=== PATIENT | male | born 1955 | race African-American/Black ===

== ENCOUNTER 2017-02-12 12:18 | Emergency (ER) | payer MEDICAID, OTHER ==
[~2017-02-12] VITALS: Ht 177.8 cm; Wt 79.0 kg
[~2017-02-12 12:18] MED LIST: ABIL5; TRIH2TAB4
[2017-02-12 13:59] LABS: *AMPHETAMINES SCREEN URINE NEGATIVE (NEGATIVE); *BARBITURATES SCREEN URINE NEGATIVE (NEGATIVE); *BENZODIAZEPINES SCREEN URINE NEGATIVE (NEGATIVE); *COCAINE SCREEN URINE PRESUMTIVE POSITIVE (NEGATIVE); CANNABINOID URINE SCREEN PRESUMTIVE POSITIVE (NEGATIVE); METHADONE URINE SCREEN NEGATIVE (NEGATIVE); OPIATES URINE SCREEN NEGATIVE (NEGATIVE); PHENCYCLIDINE URINE SCREEN PRESUMTIVE POSITIVE (NEGATIVE)
[2017-02-12] MEDS ORDERED: LIDOCAINE HCL 1% 20ML VIAL (Pyxis) INJ INFIL ONE (14:15)
[2017-02-12 15:15] VITALS: BP 121/79
[2017-05-21] MEDS ORDERED: ASPI-1160 PO (12:18)
[2017-05-21] MEDS ORDERED: FURO-151 PO (12:19)
[2017-05-21] MEDS ORDERED: BENA40TA66 PO (18:17)
[2017-07-01] MEDS ORDERED: ALPR0.25 PO (12:04)
== END 2017-02-12 15:49 | disposition home or self-care (01) ==
LOC: ER 12:36
DX: S01.511A Laceration without foreign body of lip, initial encounter (principal); J45.909 Unspecified asthma, uncomplicated; I50.9 Heart failure, unspecified; I11.0 Hypertensive heart disease with heart failure; F41.9 Anxiety disorder, unspecified; E11.9 Type 2 diabetes mellitus without complications; F12.10 Cannabis abuse, uncomplicated; F16.10 Hallucinogen abuse, uncomplicated; W22.8XXA Striking against or struck by other objects, initial encounter; Y93.55 Activity, bike riding; Y99.8 Other external cause status; Y92.89 Other specified places as the place of occurrence of the external cause
CPT/HCPCS: 12011; 36415; 70450; 70486; 80305; 99285; G0482; J3490; X7700; Z7610

== ENCOUNTER 2017-05-19 15:33 | Inpatient (IN) | payer MEDICAID ==
[~2017-05-19] VITALS: Ht 188 cm; Wt 74.8 kg
[2017-05-19] MEDS ORDERED: ALBUTEROL (0.083%) 2.5MG/3ML NEB HHN STA (16:32)
[2017-05-19] MEDS ORDERED: IPRATROPIUM BROMIDE (0.02%) 0.5MG/2.5ML NEB HHN STA (16:32)
[2017-05-19 16:59] LABS: BASOPHILS % 0.5 % (0.0-2.0); EOSINOPHILS % 1.9 % (0.0-5.0); HEMATOCRIT. 36.4 % (42.0-52.0); LYMPHOCYTES % 9.9 % (20.0-50.0); MEAN CORPUSCULAR HEMOGLOBIN 27.8 pg (28.0-32.0); MEAN CORPUSCULAR VOLUME 84.2 fL (80.0-94.0); MEAN PLATELET VOLUME 8.3 fl (7.4-10.4); MONOCYTES % 8.1 % (2.0-8.0); NEUTROPHILS % 79.6 % (40.0-76.0); PLATELET 296 x1000/uL (130-400); RED BLOOD CELL COUNT 4.33 mill/uL (4.7-6.1); RED CELL DISTRIBUTION WIDTH 15.2 % (11.6-14.6)
[2017-05-19 17:08] LABS: CARBON DIOXIDE 31 mEq/L (21-32); CHLORIDE 100 mEq/L (98-107)
[2017-05-19 17:15] LABS: TROPONIN I 0.22 ng/mL (0.00-0.04)
[2017-05-19] MEDS ORDERED: FUROSEMIDE 40MG/4ML VIAL IVP NR (19:30)
[2017-05-19] MEDS ORDERED: NITROGLYCERIN OINT 1GM/INCH UDPKT TD NR (19:30)
[2017-05-19 20:00] VITALS: BP 132/78
[2017-05-19] MEDS ORDERED: ASPIRIN 325MG EC TABLET PO ONE (20:15)
[2017-05-19 22:00] VITALS: BP 132/78
[2017-05-19] MEDS ORDERED: GUAIFENESIN 200MG/10ML SUGAR FREE UDC PO PRN (22:45)
[2017-05-19] MEDS ORDERED: ACETAMINOPHEN 650MG/20.3ML UDC GT PRN (22:45)
[2017-05-19] MEDS ORDERED: DIPHENHYDRAMINE 50MG/ML VIAL IV PRN (22:45)
[2017-05-19] MEDS ORDERED: ACETAMINOPHEN 650MG SUPP PR PRN (22:45)
[2017-05-19] MEDS ORDERED: CLONIDINE 0.1MG TABLET PO PRN (22:45)
[2017-05-19] MEDS ORDERED: HYDROCODONE/ACETAMINOPHEN 5/325MG TABLET PO PRN (22:45)
[2017-05-19] MEDS ORDERED: DOCUSATE SODIUM 100MG CAPSULE PO PRN (22:45)
[2017-05-19] MEDS ORDERED: ONDANSETRON HCL 4MG/2ML VIAL IV PRN (22:45)
[2017-05-19] MEDS ORDERED: MAGNESIUM/ALUMINUM HYDROXIDE/SIMETHICONE 30ML UDC PO PRN (22:45)
[2017-05-19] MEDS ORDERED: ACETAMINOPHEN 325MG TABLET PO PRN (22:45)
[2017-05-19] MEDS ORDERED: NA PHOS,M-B/NA PHOS,DI-BA ENEMA 118ML PR PRN (22:45)
[2017-05-19] MEDS ORDERED: IPRATROPIUM/ALBUTEROL 0.5-3(2.5)MG/3ML NEB INH PRN (22:45)
[2017-05-20] VITALS (7 sets, daily range): BP systolic 99–137; BP diastolic 68–89
[2017-05-20] MEDS ORDERED: lasix (00:15)
[2017-05-20] MEDS ORDERED: norco (00:17)
[2017-05-20] MEDS ORDERED: hctz (00:19)
[2017-05-20] MEDS ORDERED: albute (00:20)
[2017-05-20] MEDS: IPRATROPIUM/ALBUTEROL 0.5-3(2.5)MG/3ML NEB INH SCH ×4 (01:06→21:29)
[2017-05-20 03:45] LABS: CLARITY URINE CLEAR (CLEAR); COLOR URINE YELLOW (YELLOW); GLUCOSE URINE NEGATIVE (NEGATIVE); KETONES URINE NEGATIVE (NEGATIVE); LEUKOCYTE ESTERASE URINE NEGATIVE (NEGATIVE); NITRITE URINE NEGATIVE (NEGATIVE); OCCULT BLOOD URINE 1+ (NEGATIVE); PH URINE 5.5 (4.5-8.0); PROTEIN URINE NEGATIVE (NEGATIVE); SPECIFIC GRAVITY URINE 1.013 (1.005-1.030); UROBILINOGEN URINE 0.2 E.U./dL (0.2-1.0)
[2017-05-20 04:04] LABS: *AMPHETAMINES SCREEN URINE NEGATIVE (NEGATIVE); *BARBITURATES SCREEN URINE NEGATIVE (NEGATIVE); *BENZODIAZEPINES SCREEN URINE NEGATIVE (NEGATIVE); *COCAINE SCREEN URINE PRESUMTIVE POSITIVE (NEGATIVE); CANNABINOID URINE SCREEN PRESUMTIVE POSITIVE (NEGATIVE); METHADONE URINE SCREEN NEGATIVE (NEGATIVE); OPIATES URINE SCREEN NEGATIVE (NEGATIVE); PHENCYCLIDINE URINE SCREEN PRESUMTIVE POSITIVE (NEGATIVE)
[2017-05-20] MEDS: SODIUM CHLORIDE 0.9% INJ 3ML FLUSH IVF SCH ×3 (05:53→19:47)
[2017-05-20 06:25] LABS: BASOPHILS % 0.5 % (0.0-2.0); EOSINOPHILS % 2.2 % (0.0-5.0); HEMATOCRIT. 35.1 % (42.0-52.0); HEMOGLOBIN. 11.7 g/dL (14.0-18.0); LYMPHOCYTES % 17.7 % (20.0-50.0); MEAN CORPUSCULAR HEMOGLOBIN 28.2 pg (28.0-32.0); MEAN CORPUSCULAR VOLUME 84.3 fL (80.0-94.0); MEAN PLATELET VOLUME 8.6 fl (7.4-10.4); MONOCYTES % 10.3 % (2.0-8.0); NEUTROPHILS % 69.3 % (40.0-76.0); PLATELET 267 x1000/uL (130-400); RED BLOOD CELL COUNT 4.16 mill/uL (4.7-6.1); RED CELL DISTRIBUTION WIDTH 15.1 % (11.6-14.6)
[2017-05-20 07:44] LABS: CARBON DIOXIDE 29 mEq/L (21-32); CHLORIDE 98 mEq/L (98-107)
[2017-05-20 07:49] LABS: CREATINE KINASE 150 IU/L (39-308); HDL CHOLESTEROL 90 mg/dL (40-59); LDL CHOLESTEROL 88 mg/dL (5-100); TROPONIN I 0.22 ng/mL (0.00-0.04)
[2017-05-20 08:50] LABS: T4 FREE 0.91 ng/dL (0.76-1.46)
[2017-05-20] MEDS: FUROSEMIDE 40MG/4ML VIAL IV SCH (09:11)
[2017-05-20] MEDS: ASPIRIN 81MG TABLET PO SCH (09:11)
[2017-05-20] MEDS ORDERED: PNEUMOCOCCAL 23-VAL P-SAC VAC 0.5 ML IM ONE (12:00)
[2017-05-20] MEDS ORDERED: INFLUENZA VIRUS VACCINE 0.5ML SYR IM ONE (12:00)
[2017-05-20 16:13] LABS: CREATINE KINASE MB FRACTION 1.7 ng/mL (0.5-3.6); TROPONIN I 0.19 ng/mL (0.00-0.04)
[2017-05-21] VITALS: BP 126/80
[2017-05-21] MEDS: IPRATROPIUM/ALBUTEROL 0.5-3(2.5)MG/3ML NEB INH SCH ×2 (02:37→07:57)
[2017-05-21 04:30] VITALS: BP 140/96
[2017-05-21] MEDS: SODIUM CHLORIDE 0.9% INJ 3ML FLUSH IVF SCH (05:04)
[2017-05-21 08:00] VITALS: BP 144/88
[2017-05-21] MEDS: ASPIRIN 81MG TABLET PO SCH (08:24)
[2017-05-21] MEDS: FUROSEMIDE 40MG/4ML VIAL IV SCH (08:24)
[2017-05-21 12:00] VITALS: BP 136/84
[2017-05-21] MEDS ORDERED: ASPI-1160 PO (12:18)
[2017-05-21] MEDS ORDERED: FURO-151 PO (12:19)
[2017-05-21 13:17] VITALS: BP 136/79
[2017-05-21] MEDS ORDERED: BENA40TA66 PO (18:17)
== END 2017-05-21 14:17 | disposition home or self-care (01) | DRG 194 ==
LOC: ER 15:33 → 7WST 20:11 → ENRESERV 21:12
PROVIDERS: ADMIT Family Medicine; ATTEND Family Medicine
PROC: 5A09357 Assistance with Respiratory Ventilation, Less than 24 Consecutive Hours, Continuous Positive Airway Pressure (ICD-10-PCS; principal; 2017-05-19)
DX: I11.0 Hypertensive heart disease with heart failure (principal); J44.1 Chronic obstructive pulmonary disease with (acute) exacerbation; D63.8 Anemia in other chronic diseases classified elsewhere; E11.9 Type 2 diabetes mellitus without complications; E78.5 Hyperlipidemia, unspecified; F41.9 Anxiety disorder, unspecified; I50.31 Acute diastolic (congestive) heart failure; F10.20 Alcohol dependence, uncomplicated; F14.90 Cocaine use, unspecified, uncomplicated; F12.90 Cannabis use, unspecified, uncomplicated; F17.210 Nicotine dependence, cigarettes, uncomplicated; M54.30 Sciatica, unspecified side; Z79.899 Other long term (current) drug therapy
CPT/HCPCS: 36415; 71010; 80053; 80061; 80305; 81001; 82550; 82553; 83036; 83605; 83690; 83880; 84439; 84443; 84484; 85025; 85379; 87040; 93005; 93306; 93970; 94640; 94660; 96374; 99285; J1940; J7611; J7620

== ENCOUNTER 2017-07-27 13:13 | Emergency (ER) | payer MEDICAID, OTHER ==
[~2017-07-27] VITALS: Ht 177.8 cm; Wt 85.0 kg
[~2017-07-27 13:13] MED LIST changes: +ALPR0.25 PO; +ASPI-1160 PO; +BENA40TA66 PO; +FURO-151 PO; -TRIH2TAB4
[2017-07-27 13:18] VITALS: BP 122/66
== END 2017-07-27 16:48 | disposition home or self-care (01) ==
LOC: ER 13:38
DX: R07.89 Other chest pain (principal)
CPT/HCPCS: 99283

== ENCOUNTER 2017-10-18 20:05 | Emergency (ER) | payer OTHER ==
[~2017-10-18] VITALS: Ht 188 cm; Wt 104.0 kg
[2017-10-18 20:07] VITALS: BP 164/100
== END 2017-10-18 23:50 | disposition left against medical advice (07) ==
LOC: ER 20:11
DX: Z53.21 Procedure and treatment not carried out due to patient leaving prior to being seen by health care provider (principal)

== ENCOUNTER 2017-11-11 20:10 | Emergency (ER) | payer OTHER ==
[~2017-11-11] VITALS: Ht 188 cm; Wt 78.6 kg
[2017-11-11] MEDS ORDERED: SODIUM CHLORIDE 0.9% 1,000 ML IV ONE (20:16)
[2017-11-11 20:33] LABS: BASOPHILS % 1.2 % (0.0-2.0); EOSINOPHILS % 2.9 % (0.0-5.0); MEAN CORPUSCULAR HEMOGLOBIN 27.1 pg (28.0-32.0); MEAN CORPUSCULAR VOLUME 81.4 fL (80.0-94.0); MEAN PLATELET VOLUME 8.9 fl (7.4-10.4); NEUTROPHILS % 63.9 % (40.0-76.0); PLATELET 186 x1000/uL (130-400); RED BLOOD CELL COUNT 4.05 mill/uL (4.7-6.1); RED CELL DISTRIBUTION WIDTH 17.2 % (11.6-14.6)
[2017-11-11 20:38] LABS: CHLORIDE 104 mEq/L (98-107)
[2017-11-11 20:42] LABS: INR 1.1; PROTHROMBIN TIME 11.9 sec (9.4-11.6)
[2017-11-11 20:43] LABS: PARTIAL THROMBOPLASTIN TIME 28.2 sec (23.4-31.0)
[2017-11-11 20:44] LABS: ETHANOL BLOOD < 10 mg/dL
[2017-11-11] MEDS ORDERED: ALTEPLASE IV STA (21:19)
[2017-11-11] MEDS ORDERED: ALTEPLASE 100MG/VIAL IV STA ×2 (21:19→21:36)
[2017-11-11 23:08] VITALS: BP 115/74
== END 2017-11-11 23:27 | disposition short-term general hospital (02) ==
LOC: ER 20:13
DX: I63.9 Cerebral infarction, unspecified (principal); J44.9 Chronic obstructive pulmonary disease, unspecified; E11.9 Type 2 diabetes mellitus without complications; I10 Essential (primary) hypertension; F12.10 Cannabis abuse, uncomplicated; F14.10 Cocaine abuse, uncomplicated; Z79.82 Long term (current) use of aspirin
CPT/HCPCS: 36415; 37195; 70450; 71045; 80053; 82962; 84484; 85025; 85610; 85730; 93005; 96360; 96361; 99291; G0482; J2997; J7030; Z7610

== ENCOUNTER 2018-08-03 12:56 | Inpatient (IN) | payer OTHER ==
[~2018-08-03] VITALS: Ht 188 cm; Wt 79.4 kg
[2018-08-03] MEDS ORDERED: PREDNISONE 20MG TABLET PO ONE (13:30)
[2018-08-03] MEDS ORDERED: ALBUTEROL (0.083%) 2.5MG/3ML NEB HHN ONE (13:30)
[2018-08-03] MEDS ORDERED: IPRATROPIUM BROMIDE (0.02%) 0.5MG/2.5ML NEB HHN ONE (13:30)
[2018-08-03 14:51] LABS: BASOPHILS % 0.7 % (0.0-2.0); EOSINOPHILS % 1.9 % (0.0-5.0); HEMATOCRIT. 34.6 % (42.0-52.0); HEMOGLOBIN. 11.4 g/dL (14.0-18.0); LYMPHOCYTES % 17.2 % (20.0-50.0); MEAN CORPUSCULAR HEMOGLOBIN 27.7 pg (28.0-32.0); MEAN PLATELET VOLUME 9.3 fl (7.4-10.4); MONOCYTES % 10.8 % (2.0-8.0); NEUTROPHILS % 69.4 % (40.0-76.0); PLATELET 255 x1000/uL (130-400); RED BLOOD CELL COUNT 4.13 mill/uL (4.7-6.1); RED CELL DISTRIBUTION WIDTH 16.1 % (11.6-14.6)
[2018-08-03 14:56] LABS: CHLORIDE 105 mEq/L (98-107)
[2018-08-03] MEDS ORDERED: ASPIRIN 325MG EC TABLET PO ONE (15:15)
[2018-08-03] MEDS ORDERED: FUROSEMIDE 40MG/4ML VIAL IVP NR (15:15)
[2018-08-03 15:34] LABS: INR 1.1; PARTIAL THROMBOPLASTIN TIME 32.8 sec (23.4-31.0); PROTHROMBIN TIME 11.4 sec (9.1-11.1)
[2018-08-03] MEDS ORDERED: HEPARIN 5000 UNITS/ML VIAL IV ONE (15:45)
[2018-08-03] MEDS ORDERED: HEPARIN 25,000 UNITS PREMIX 500 ML IV ONE (15:45)
[2018-08-03 18:25] VITALS: BP 130/88
[2018-08-03 20:00] VITALS: BP 136/87
[2018-08-03 20:26] VITALS: BP 136/87
[2018-08-03] MEDS ORDERED: HYDROMORPHONE HCL/PF 2MG/ML CPJ IM PRN (21:00)
[2018-08-03] MEDS: FUROSEMIDE 40MG/4ML VIAL IV SCH (21:15)
[2018-08-03 22:00] VITALS: BP 135/88
[2018-08-03] MEDS: NITROGLYCERIN OINT 1GM/INCH UDPKT TD SCH (22:51)
[2018-08-03] MEDS: ALPRAZOLAM 0.25 MG TABLET PO PRN (22:51)
[2018-08-03] MEDS: ATORVASTATIN CALCIUM 40MG TABLET PO SCH (22:51)
[2018-08-03] MEDS: METOPROLOL TARTRATE 50MG TABLET PO SCH (22:52)
[2018-08-03] MEDS: LISINOPRIL 20MG TABLET PO SCH (22:52)
[2018-08-03 23:00] VITALS: BP 125/64
[2018-08-03] MEDS ORDERED: HEPARIN 5000 UNITS/ML VIAL IV PRN ×2 (23:00)
[2018-08-03] MEDS ORDERED: HEPARIN 25,000 UNITS PREMIX 500 ML IV PRN (23:00)
[2018-08-04] VITALS (17 sets, daily range): BP systolic 102–156; BP diastolic 46–96
[2018-08-04 00:12] LABS: INR 1.1; PARTIAL THROMBOPLASTIN TIME 40.6 sec (23.4-31.0); PROTHROMBIN TIME 11.4 sec (9.1-11.1)
[2018-08-04] MEDS: NITROGLYCERIN OINT 1GM/INCH UDPKT TD SCH ×3 (06:40→22:00)
[2018-08-04] MEDS ORDERED: IPRATROPIUM/ALBUTEROL 0.5-3(2.5)MG/3ML NEB HHN PRN (09:00)
[2018-08-04] MEDS: ARIPIPRAZOLE 5MG TABLET PO SCH (09:00)
[2018-08-04 09:41] LABS: CREATINE KINASE MB FRACTION 1.3 ng/mL (0.5-3.6)
[2018-08-04] MEDS ORDERED: DOBUTAMINE 250MG PREMIX 250 ML IV NR (10:00)
[2018-08-04] MEDS: ASPIRIN 325MG EC TABLET PO SCH (10:03)
[2018-08-04] MEDS: LISINOPRIL 20MG TABLET PO SCH (10:05)
[2018-08-04] MEDS: FUROSEMIDE 40MG/4ML VIAL IV SCH ×2 (10:05→21:00)
[2018-08-04] MEDS: METOPROLOL TARTRATE 50MG TABLET PO SCH ×2 (10:05→21:01)
[2018-08-04] MEDS: IPRATROPIUM/ALBUTEROL 0.5-3(2.5)MG/3ML NEB HHN SCH ×3 (11:52→20:17)
[2018-08-04] MEDS ORDERED: DOBUTAMINE 250MG PREMIX 0 ML IV ONE (12:18)
[2018-08-04] MEDS: BUDESONIDE 0.5MG/2ML NEB HHN SCH (20:17)
[2018-08-04] MEDS: ATORVASTATIN CALCIUM 40MG TABLET PO SCH (21:00)
[2018-08-04] MEDS: ALPRAZOLAM 0.25 MG TABLET PO PRN (21:01)
[2018-08-05] VITALS (13 sets, daily range): BP systolic 104–133; BP diastolic 62–91
[2018-08-05] MEDS: IPRATROPIUM/ALBUTEROL 0.5-3(2.5)MG/3ML NEB HHN SCH ×6 (00:03→21:39)
[2018-08-05] MEDS: NITROGLYCERIN OINT 1GM/INCH UDPKT TD SCH ×3 (06:00→21:24)
[2018-08-05 07:30] LABS: CREATINE KINASE MB FRACTION 1.4 ng/mL (0.5-3.6)
[2018-08-05 07:40] LABS: BASOPHILS % 0.6 % (0.0-2.0); EOSINOPHILS % 0.7 % (0.0-5.0); HEMATOCRIT. 34.7 % (42.0-52.0); HEMOGLOBIN. 11.4 g/dL (14.0-18.0); LYMPHOCYTES % 18.2 % (20.0-50.0); MEAN CORPUSCULAR HEMOGLOBIN 27.6 pg (28.0-32.0); MEAN CORPUSCULAR VOLUME 84.2 fL (80.0-94.0); MEAN PLATELET VOLUME 9.8 fl (7.4-10.4); MONOCYTES % 10.1 % (2.0-8.0); NEUTROPHILS % 70.4 % (40.0-76.0); PLATELET 238 x1000/uL (130-400); RED BLOOD CELL COUNT 4.12 mill/uL (4.7-6.1); RED CELL DISTRIBUTION WIDTH 15.7 % (11.6-14.6)
[2018-08-05] MEDS: BUDESONIDE 0.5MG/2ML NEB HHN SCH ×2 (07:50→21:39)
[2018-08-05] MEDS: ASPIRIN 325MG EC TABLET PO SCH (09:00)
[2018-08-05] MEDS: LISINOPRIL 20MG TABLET PO SCH (09:00)
[2018-08-05] MEDS: ARIPIPRAZOLE 5MG TABLET PO SCH (09:00)
[2018-08-05] MEDS: FUROSEMIDE 40MG/4ML VIAL IV SCH ×2 (09:00→20:16)
[2018-08-05] MEDS: METOPROLOL TARTRATE 50MG TABLET PO SCH ×2 (09:00→20:18)
[2018-08-05] MEDS ORDERED: ESMOLOL HCL 10MG/ML 10ML VIAL IV ONE (09:20)
[2018-08-05] MEDS ORDERED: DOBUTAMINE 250MG PREMIX 250 ML IV ONE (09:20)
[2018-08-05] MEDS ORDERED: ATROPINE SULFATE 0.1MG/ML 10ML DISP.SYRIN ONE (10:11)
[2018-08-05] MEDS: ATORVASTATIN CALCIUM 40MG TABLET PO SCH (20:16)
[2018-08-06] VITALS (13 sets, daily range): BP systolic 92–126; BP diastolic 35–79
[2018-08-06] MEDS: IPRATROPIUM/ALBUTEROL 0.5-3(2.5)MG/3ML NEB HHN SCH ×7 (01:25→22:21)
[2018-08-06 06:42] LABS: BASOPHILS % 0.6 % (0.0-2.0); EOSINOPHILS % 1.1 % (0.0-5.0); HEMATOCRIT. 33.6 % (42.0-52.0); HEMOGLOBIN. 11.2 g/dL (14.0-18.0); LYMPHOCYTES % 19.6 % (20.0-50.0); MEAN CORPUSCULAR VOLUME 83.9 fL (80.0-94.0); MEAN PLATELET VOLUME 9.8 fl (7.4-10.4); MONOCYTES % 10.2 % (2.0-8.0); NEUTROPHILS % 68.5 % (40.0-76.0); PLATELET 238 x1000/uL (130-400); RED CELL DISTRIBUTION WIDTH 15.8 % (11.6-14.6)
[2018-08-06] MEDS: NITROGLYCERIN OINT 1GM/INCH UDPKT TD SCH ×3 (07:06→22:09)
[2018-08-06 07:54] LABS: CHLORIDE 99 mEq/L (98-107)
[2018-08-06] MEDS: LISINOPRIL 20MG TABLET PO SCH (08:42)
[2018-08-06] MEDS: ASPIRIN 325MG EC TABLET PO SCH (08:42)
[2018-08-06] MEDS: ARIPIPRAZOLE 5MG TABLET PO SCH (08:43)
[2018-08-06] MEDS: METOPROLOL TARTRATE 50MG TABLET PO SCH ×2 (08:43→21:00)
[2018-08-06] MEDS: FUROSEMIDE 40MG/4ML VIAL IV SCH ×2 (08:43→20:57)
[2018-08-06] MEDS: BUDESONIDE 0.5MG/2ML NEB HHN SCH ×4 (08:57→22:20)
[2018-08-06] MEDS: ALPRAZOLAM 0.25 MG TABLET PO PRN (09:19)
[2018-08-06] MEDS: ATORVASTATIN CALCIUM 40MG TABLET PO SCH (21:05)
[2018-08-06 21:24] LABS: *AMPHETAMINES SCREEN URINE NEGATIVE (NEGATIVE); *BARBITURATES SCREEN URINE NEGATIVE (NEGATIVE); *BENZODIAZEPINES SCREEN URINE PRESUMTIVE POSITIVE (NEGATIVE)
[2018-08-06 21:25] LABS: *COCAINE SCREEN URINE PRESUMTIVE POSITIVE (NEGATIVE); CANNABINOID URINE SCREEN NEGATIVE (NEGATIVE); METHADONE URINE SCREEN NEGATIVE (NEGATIVE); OPIATES URINE SCREEN NEGATIVE (NEGATIVE); PHENCYCLIDINE URINE SCREEN NEGATIVE (NEGATIVE)
[2018-08-07] VITALS (7 sets, daily range): BP systolic 101–145; BP diastolic 65–90
[2018-08-07 06:11] LABS: BASOPHILS % 0.8 % (0.0-2.0); HEMATOCRIT. 32.7 % (42.0-52.0); HEMOGLOBIN. 10.8 g/dL (14.0-18.0); LYMPHOCYTES % 17.6 % (20.0-50.0); MEAN CORPUSCULAR HEMOGLOBIN 27.8 pg (28.0-32.0); MEAN PLATELET VOLUME 9.5 fl (7.4-10.4); MONOCYTES % 12.6 % (2.0-8.0); PLATELET 220 x1000/uL (130-400); RED BLOOD CELL COUNT 3.89 mill/uL (4.7-6.1); RED CELL DISTRIBUTION WIDTH 15.3 % (11.6-14.6)
[2018-08-07 06:13] LABS: CHLORIDE 103 mEq/L (98-107)
[2018-08-07] MEDS: NITROGLYCERIN OINT 1GM/INCH UDPKT TD SCH (06:16)
[2018-08-07] MEDS: FUROSEMIDE 40MG/4ML VIAL IV SCH (09:00)
[2018-08-07] MEDS: ARIPIPRAZOLE 5MG TABLET PO SCH (09:01)
[2018-08-07] MEDS: ASPIRIN 325MG EC TABLET PO SCH (09:02)
[2018-08-07] MEDS: METOPROLOL TARTRATE 50MG TABLET PO SCH (09:03)
[2018-08-07] MEDS: LISINOPRIL 20MG TABLET PO SCH (09:03)
[2018-08-07] MEDS: ALPRAZOLAM 0.25 MG TABLET PO PRN (12:26)
[2018-08-16 07:08] LABS: BARBITURATE SCREEN Negative ug/mL (Cutoff:0.1); BENZODIAZEPINE SCREEN Negative ng/mL (Cutoff:20); OPIATES SCREEN Negative ng/mL (Cutoff:5); PHENCYCLIDINE SCREEN Negative ng/mL (Cutoff:8)
== END 2018-08-07 12:43 | disposition home or self-care (01) | DRG 190 ==
LOC: ER 13:16 → 3WST 16:15 → EDBEDREQ 16:31 → ENRESERV 16:50
PROVIDERS: ADMIT Internal Medicine; ATTEND Internal Medicine
DX: I21.4 Non-ST elevation (NSTEMI) myocardial infarction (principal); J96.00 Acute respiratory failure, unspecified whether with hypoxia or hypercapnia; I50.43 Acute on chronic combined systolic (congestive) and diastolic (congestive) heart failure; F32.3 Major depressive disorder, single episode, severe with psychotic features; J84.9 Interstitial pulmonary disease, unspecified; I42.9 Cardiomyopathy, unspecified; N17.9 Acute kidney failure, unspecified; E44.1 Mild protein-calorie malnutrition; I34.0 Nonrheumatic mitral (valve) insufficiency; E11.9 Type 2 diabetes mellitus without complications; J45.909 Unspecified asthma, uncomplicated; F14.90 Cocaine use, unspecified, uncomplicated; F17.210 Nicotine dependence, cigarettes, uncomplicated; F41.8 Other specified anxiety disorders; I11.0 Hypertensive heart disease with heart failure; J44.9 Chronic obstructive pulmonary disease, unspecified; Z79.82 Long term (current) use of aspirin; Z82.49 Family history of ischemic heart disease and other diseases of the circulatory system; Z86.73 Personal history of transient ischemic attack (TIA), and cerebral infarction without residual deficits; Z79.899 Other long term (current) drug therapy; Z68.22 Body mass index [BMI] 22.0-22.9, adult
CPT/HCPCS: 36415; 71045; 78452; 80048; 80061; 80305; 80307; 82550; 82553; 83735; 83880; 84439; 84443; 84484; 93005; 93017; 94640; 96365; 99285; A9505; J0461; J1250; J1644; J1940; J3490; J7050; J7512; J7611; J7620; J7626

== ENCOUNTER 2018-08-07 13:48 | Inpatient (IN) | payer OTHER ==
[~2018-08-07] VITALS: Ht 188 cm; Wt 79.8 kg
[2018-08-07] MEDS ORDERED: ASPIRIN 81MG TABLET PO ONE (14:15)
[2018-08-07] MEDS ORDERED: NITROGLYCERIN 0.4MG TABLET SL SL PRN (14:15)
[2018-08-07 14:56] LABS: BASOPHILS % 0.7 % (0.0-2.0); EOSINOPHILS % 1.2 % (0.0-5.0); HEMATOCRIT. 36.4 % (42.0-52.0); HEMOGLOBIN. 11.8 g/dL (14.0-18.0); LYMPHOCYTES % 13.7 % (20.0-50.0); MEAN CORPUSCULAR HEMOGLOBIN 27.3 pg (28.0-32.0); MEAN CORPUSCULAR VOLUME 84.3 fL (80.0-94.0); MEAN PLATELET VOLUME 9.3 fl (7.4-10.4); MONOCYTES % 8.8 % (2.0-8.0); NEUTROPHILS % 75.6 % (40.0-76.0); PLATELET 238 x1000/uL (130-400); RED BLOOD CELL COUNT 4.31 mill/uL (4.7-6.1); RED CELL DISTRIBUTION WIDTH 15.6 % (11.6-14.6)
[2018-08-07 15:03] LABS: CHLORIDE 100 mEq/L (98-107)
[2018-08-07] MEDS ORDERED: FUROSEMIDE 20MG/2ML VIAL IVP ONE (15:45)
[2018-08-07 16:43] LABS: *AMPHETAMINES SCREEN URINE NEGATIVE (NEGATIVE); *BARBITURATES SCREEN URINE NEGATIVE (NEGATIVE); *BENZODIAZEPINES SCREEN URINE PRESUMTIVE POSITIVE (NEGATIVE); *COCAINE SCREEN URINE PRESUMTIVE POSITIVE (NEGATIVE)
[2018-08-07 16:44] LABS: CANNABINOID URINE SCREEN PRESUMTIVE POSITIVE (NEGATIVE); METHADONE URINE SCREEN NEGATIVE (NEGATIVE); OPIATES URINE SCREEN NEGATIVE (NEGATIVE); PHENCYCLIDINE URINE SCREEN NEGATIVE (NEGATIVE)
[2018-08-07 20:00] VITALS: BP 123/83
[2018-08-07 20:14] VITALS: BP 123/83
[2018-08-07] MEDS ORDERED: HYDROMORPHONE HCL/PF 2MG/ML CPJ IV PRN (21:30)
[2018-08-07] MEDS ORDERED: ALBUTEROL (0.083%) 2.5MG/3ML NEB HHN PRN (21:30)
[2018-08-07] MEDS: FUROSEMIDE 40MG/4ML VIAL IVP SCH (21:42)
[2018-08-07] MEDS: ATORVASTATIN CALCIUM 40MG TABLET PO SCH (22:04)
[2018-08-07] MEDS: METOPROLOL TARTRATE 50MG TABLET PO SCH (22:05)
[2018-08-07] MEDS: NITROGLYCERIN OINT 1GM/INCH UDPKT TD SCH (22:05)
[2018-08-08] VITALS: BP 98/58
[2018-08-08] MEDS: ALBUTEROL (0.083%) 2.5MG/3ML NEB HHN SCH ×6 (00:01→21:30)
[2018-08-08] MEDS: BUDESONIDE 0.5MG/2ML NEB HHN SCH ×3 (00:01→21:31)
[2018-08-08 04:05] VITALS: BP 140/90
[2018-08-08] MEDS: NITROGLYCERIN OINT 1GM/INCH UDPKT TD SCH ×3 (05:45→21:59)
[2018-08-08 05:46] LABS: BASOPHILS % 0.6 % (0.0-2.0); HEMATOCRIT. 35.7 % (42.0-52.0); HEMOGLOBIN. 11.6 g/dL (14.0-18.0); LYMPHOCYTES % 19.6 % (20.0-50.0); MEAN CORPUSCULAR HEMOGLOBIN 27.4 pg (28.0-32.0); MEAN CORPUSCULAR VOLUME 84.4 fL (80.0-94.0); MEAN PLATELET VOLUME 9.2 fl (7.4-10.4); NEUTROPHILS % 65.8 % (40.0-76.0); PLATELET 234 x1000/uL (130-400); RED BLOOD CELL COUNT 4.23 mill/uL (4.7-6.1); RED CELL DISTRIBUTION WIDTH 15.4 % (11.6-14.6)
[2018-08-08 05:55] LABS: CHLORIDE 99 mEq/L (98-107)
[2018-08-08 06:07] LABS: CREATINE KINASE 68 IU/L (39-308)
[2018-08-08 06:10] LABS: CREATINE KINASE MB FRACTION 1.5 ng/mL (0.5-3.6)
[2018-08-08 08:00] VITALS: BP 102/64
[2018-08-08] MEDS: LISINOPRIL 20MG TABLET PO SCH (09:00)
[2018-08-08] MEDS: METOPROLOL TARTRATE 50MG TABLET PO SCH ×2 (09:00→21:00)
[2018-08-08] MEDS: ARIPIPRAZOLE 5MG TABLET PO SCH ×2 (09:00→10:17)
[2018-08-08] MEDS: FUROSEMIDE 40MG/4ML VIAL IVP SCH ×4 (09:00→21:00)
[2018-08-08] MEDS: ASPIRIN 325MG EC TABLET PO SCH (10:17)
[2018-08-08 12:00] VITALS: BP 122/78
[2018-08-08] MEDS: CEFTRIAXONE 1 G PREMIX 50 ML IV SCH (15:15)
[2018-08-08] MEDS: AZITHROMYCIN 500 MG TABLET PO SCH (15:15)
[2018-08-08 16:00] VITALS: BP 107/63
[2018-08-08 20:32] VITALS: BP 105/73
[2018-08-08] MEDS: ATORVASTATIN CALCIUM 40MG TABLET PO SCH (21:59)
[2018-08-08] MEDS: ALPRAZOLAM 0.25 MG TABLET PO PRN (23:03)
[2018-08-09] VITALS: BP 116/76
[2018-08-09] MEDS: ALBUTEROL (0.083%) 2.5MG/3ML NEB HHN SCH ×6 (01:39→20:05)
[2018-08-09 04:00] VITALS: BP 100/62
[2018-08-09] MEDS: NITROGLYCERIN OINT 1GM/INCH UDPKT TD SCH ×3 (06:00→21:29)
[2018-08-09 06:29] LABS: BASOPHILS % 0.7 % (0.0-2.0); EOSINOPHILS % 1.6 % (0.0-5.0); HEMOGLOBIN. 11.4 g/dL (14.0-18.0); LYMPHOCYTES % 18.5 % (20.0-50.0); MEAN CORPUSCULAR HEMOGLOBIN 27.8 pg (28.0-32.0); MEAN PLATELET VOLUME 9.7 fl (7.4-10.4); MONOCYTES % 9.9 % (2.0-8.0); NEUTROPHILS % 69.3 % (40.0-76.0); PLATELET 229 x1000/uL (130-400); RED CELL DISTRIBUTION WIDTH 15.6 % (11.6-14.6)
[2018-08-09 06:46] LABS: CHLORIDE 100 mEq/L (98-107)
[2018-08-09 07:43] VITALS: BP 94/52
[2018-08-09] MEDS: METOPROLOL TARTRATE 50MG TABLET PO SCH ×2 (07:44→21:00)
[2018-08-09] MEDS: LISINOPRIL 20MG TABLET PO SCH (07:44)
[2018-08-09] MEDS: ARIPIPRAZOLE 5MG TABLET PO SCH (08:52)
[2018-08-09] MEDS: ASPIRIN 325MG EC TABLET PO SCH (08:52)
[2018-08-09] MEDS: AZITHROMYCIN 500 MG TABLET PO SCH (08:52)
[2018-08-09] MEDS: FUROSEMIDE 40MG/4ML VIAL IVP SCH ×2 (08:57→21:00)
[2018-08-09] MEDS: ENOXAPARIN 40MG/0.4ML SYR SUBCUT SCH (08:57)
[2018-08-09 11:22] VITALS: BP 103/63
[2018-08-09] MEDS: BUDESONIDE 0.5MG/2ML NEB HHN SCH ×2 (12:19→20:05)
[2018-08-09] MEDS: CEFTRIAXONE 1 G PREMIX 50 ML IV SCH (14:29)
[2018-08-09 15:26] VITALS: BP 111/64
[2018-08-09 19:44] LABS: BG BASE EXCESS 3.2 mmol/L (-2.0-2.0); BG CARBOXYHEMOGLOBIN 0.1 % (0.5-1.5); BG DEOXYHEMOGLOBIN 3.6 % (0.0-5.0); BG FRACTION INSPIRED OXYGEN 21; BG HCO3 ACT 27.6 mmol/L (22.0-26.0); BG METHEMOGLOBIN 0.3 % (0.0-1.5); BG OXYGEN SATURATION 96.4 % (92.0-98.5); BG PCO2 41.7 mmHg (35.0-45.0); BG PH 7.439 (7.350-7.450); BG PO2 88.3 mmHg (75.0-100.0); BG SAMPLE SITE RIGHT RADIAL; BG TOTAL HEMOGLOBIN 12.5 g/dL (12.0-18.0); BG VENT MODE ROOM AIR
[2018-08-09 20:51] VITALS: BP 100/60
[2018-08-09] MEDS: ATORVASTATIN CALCIUM 40MG TABLET PO SCH (21:29)
[2018-08-10] VITALS: BP 108/67
[2018-08-10] MEDS: ALPRAZOLAM 0.25 MG TABLET PO PRN (00:26)
[2018-08-10] MEDS: ALBUTEROL (0.083%) 2.5MG/3ML NEB HHN SCH ×2 (00:57→04:00)
[2018-08-10] MEDS: NITROGLYCERIN OINT 1GM/INCH UDPKT TD SCH (06:40)
[2018-08-10 08:00] VITALS: BP 114/73
[2018-08-10] MEDS: FUROSEMIDE 40MG/4ML VIAL IVP SCH (08:49)
[2018-08-10] MEDS: METOPROLOL TARTRATE 50MG TABLET PO SCH (08:49)
[2018-08-10] MEDS: ENOXAPARIN 40MG/0.4ML SYR SUBCUT SCH (08:49)
[2018-08-10] MEDS: LISINOPRIL 20MG TABLET PO SCH (08:49)
[2018-08-10] MEDS: AZITHROMYCIN 500 MG TABLET PO SCH (08:49)
[2018-08-10] MEDS: ASPIRIN 325MG EC TABLET PO SCH (08:49)
[2018-08-10] MEDS: ARIPIPRAZOLE 5MG TABLET PO SCH (08:49)
[2018-08-10 09:10] VITALS: BP 114/73
== END 2018-08-10 10:56 | disposition home or self-care (01) | DRG 139 ==
LOC: ER 13:48 → 6WST 15:45 → EDBEDREQTM 15:50 → EDBEDREQ 15:50 → ENRESERV 17:42
PROVIDERS: ADMIT Internal Medicine; ATTEND Internal Medicine
DX: J18.1 Lobar pneumonia, unspecified organism (principal); I50.23 Acute on chronic systolic (congestive) heart failure; N17.9 Acute kidney failure, unspecified; E11.22 Type 2 diabetes mellitus with diabetic chronic kidney disease; I42.9 Cardiomyopathy, unspecified; E44.1 Mild protein-calorie malnutrition; J44.0 Chronic obstructive pulmonary disease with (acute) lower respiratory infection; I13.0 Hypertensive heart and chronic kidney disease with heart failure and stage 1 through stage 4 chronic kidney disease, or unspecified chronic kidney disease; F12.90 Cannabis use, unspecified, uncomplicated; D64.9 Anemia, unspecified; I08.0 Rheumatic disorders of both mitral and aortic valves; F14.90 Cocaine use, unspecified, uncomplicated; N18.9 Chronic kidney disease, unspecified; Z68.22 Body mass index [BMI] 22.0-22.9, adult; I25.2 Old myocardial infarction; Z91.19 Patient's noncompliance with other medical treatment and regimen; Z71.51 Drug abuse counseling and surveillance of drug abuser; Z86.73 Personal history of transient ischemic attack (TIA), and cerebral infarction without residual deficits
CPT/HCPCS: 36415; 36600; 71045; 80048; 80305; 82375; 82550; 82553; 82805; 83735; 83880; 84484; 93005; 93306; 94640; 96374; 99291; J0696; J1650; J1940; J7050; J7060; J7611; J7626

== ENCOUNTER 2018-09-11 08:32 | Inpatient (IN) | payer OTHER ==
[~2018-09-11] VITALS: Ht 182.9 cm; Wt 86.2 kg
[~2018-09-11 08:32] MED LIST changes: -ABIL5; +ABIL5 PO; -BENA40TA66 PO
[2018-09-11] MEDS ORDERED: ASPIRIN 81MG TABLET PO ONE ×2 (09:15→10:45)
[2018-09-11 09:52] LABS: CHLORIDE 106 mEq/L (98-107)
[2018-09-11 09:56] LABS: BASOPHILS % 0.7 % (0.0-2.0); EOSINOPHILS % 0.7 % (0.0-5.0); HEMATOCRIT. 37.4 % (42.0-52.0); HEMOGLOBIN. 12.1 g/dL (14.0-18.0); LYMPHOCYTES % 14.3 % (20.0-50.0); MEAN CORPUSCULAR HEMOGLOBIN 26.6 pg (28.0-32.0); MEAN CORPUSCULAR VOLUME 82.4 fL (80.0-94.0); MEAN PLATELET VOLUME 9.2 fl (7.4-10.4); MONOCYTES % 9.9 % (2.0-8.0); NEUTROPHILS % 74.4 % (40.0-76.0); PLATELET 243 x1000/uL (130-400); RED BLOOD CELL COUNT 4.54 mill/uL (4.7-6.1); RED CELL DISTRIBUTION WIDTH 16.9 % (11.6-14.6)
[2018-09-11] MEDS ORDERED: NITROGLYCERIN 0.4MG TABLET SL SL PRN (10:45)
[2018-09-11] MEDS ORDERED: FUROSEMIDE 40MG/4ML VIAL IV ONE (10:45)
[2018-09-11] MEDS ORDERED: HALOPERIDOL LACTATE 5MG/ML VIAL IM ONE (11:00)
[2018-09-11 11:57] LABS: CLARITY URINE CLEAR (CLEAR); COLOR URINE YELLOW (YELLOW); KETONES URINE NEGATIVE (NEGATIVE); LEUKOCYTE ESTERASE URINE NEGATIVE (NEGATIVE); NITRITE URINE NEGATIVE (NEGATIVE); OCCULT BLOOD URINE 2+ (NEGATIVE); PH URINE 5.5 (4.5-8.0); PROTEIN URINE 2+ (NEGATIVE); SPECIFIC GRAVITY URINE 1.016 (1.005-1.030); UROBILINOGEN URINE 0.2 E.U./dL (0.2-1.0)
[2018-09-11 12:21] LABS: *AMPHETAMINES SCREEN URINE NEGATIVE (NEGATIVE)
[2018-09-11 12:22] LABS: *BENZODIAZEPINES SCREEN URINE NEGATIVE (NEGATIVE); *COCAINE SCREEN URINE NEGATIVE (NEGATIVE); CANNABINOID URINE SCREEN PRESUMTIVE POSITIVE (NEGATIVE); METHADONE URINE SCREEN NEGATIVE (NEGATIVE); OPIATES URINE SCREEN NEGATIVE (NEGATIVE); PHENCYCLIDINE URINE SCREEN PRESUMTIVE POSITIVE (NEGATIVE)
[2018-09-11 12:24] LABS: *BARBITURATES SCREEN URINE NEGATIVE (NEGATIVE)
[2018-09-11 13:57] VITALS: BP 149/84
[2018-09-11 14:04] VITALS: BP 149/84
[2018-09-11] MEDS ORDERED: ONDANSETRON HCL 4MG/2ML INJ IV PRN (14:30)
[2018-09-11] MEDS ORDERED: ACETAMINOPHEN 325MG TABLET PO PRN (14:30)
[2018-09-11] MEDS ORDERED: GUAIFENESIN 200MG/10ML SUGAR FREE UDC PO PRN (14:30)
[2018-09-11] MEDS ORDERED: HYDROCODONE/ACETAMINOPHEN 5/325MG TABLET PO PRN (14:30)
[2018-09-11] MEDS ORDERED: DOCUSATE SODIUM 100MG CAPSULE PO PRN (14:30)
[2018-09-11] MEDS ORDERED: MAGNESIUM/ALUMINUM HYDROXIDE/SIMETHICONE 30ML UDC PO PRN (14:30)
[2018-09-11] MEDS ORDERED: IPRATROPIUM/ALBUTEROL 0.5-3(2.5)MG/3ML NEB INH PRN (14:30)
[2018-09-11] MEDS: ENOXAPARIN 40MG/0.4ML SYR SUBCUT SCH (15:00)
[2018-09-11 16:00] VITALS: BP 147/101
[2018-09-11] MEDS ORDERED: HYDRALAZINE 20MG/ML VIAL IV PRN (17:00)
[2018-09-11 17:06] LABS: CHLORIDE 105 mEq/L (98-107)
[2018-09-11] MEDS ORDERED: ALBUTEROL (0.083%) 2.5MG/3ML NEB HHN NR (17:30)
[2018-09-11] MEDS: FUROSEMIDE 40MG/4ML VIAL IVP SCH (17:34)
[2018-09-11] MEDS: ALPRAZOLAM 0.25 MG TABLET PO SCH (17:34)
[2018-09-11 20:00] VITALS: BP 126/78
[2018-09-11] MEDS: ATORVASTATIN CALCIUM 40MG TABLET PO SCH ×2 (21:00→22:32)
[2018-09-12] VITALS: BP 136/89
[2018-09-12 04:00] VITALS: BP 120/64
[2018-09-12] MEDS: FUROSEMIDE 40MG/4ML VIAL IVP SCH (06:47)
[2018-09-12 07:07] LABS: BASOPHILS % 0.5 % (0.0-2.0); EOSINOPHILS % 0.7 % (0.0-5.0); HEMATOCRIT. 37.8 % (42.0-52.0); HEMOGLOBIN. 12.4 g/dL (14.0-18.0); LYMPHOCYTES % 13.3 % (20.0-50.0); MEAN CORPUSCULAR HEMOGLOBIN 26.9 pg (28.0-32.0); MEAN PLATELET VOLUME 9.7 fl (7.4-10.4); MONOCYTES % 12.3 % (2.0-8.0); NEUTROPHILS % 73.2 % (40.0-76.0); PLATELET 240 x1000/uL (130-400); RED CELL DISTRIBUTION WIDTH 16.9 % (11.6-14.6)
[2018-09-12 07:23] LABS: CHLORIDE 101 mEq/L (98-107)
[2018-09-12] MEDS ORDERED: OMEPRAZOLE 20MG CAPSULE EXTENDED RELEASE PO SCH (07:40)
[2018-09-12 08:00] VITALS: BP 117/85
[2018-09-12] MEDS: ALPRAZOLAM 0.25 MG TABLET PO SCH (08:38)
[2018-09-12] MEDS ORDERED: ASPIRIN 81MG EC TABLET PO SCH (09:00)
[2018-09-12] MEDS ORDERED: ASPIRIN 81MG TABLET PO SCH (09:00)
[2018-09-12] MEDS ORDERED: ARIPIPRAZOLE 5MG TABLET PO SCH (09:00)
[2018-09-12] MEDS ORDERED: ALBUTEROL (0.5%) 2.5MG/0.5ML NEB HHN NR (11:30)
[2018-09-12 12:00] VITALS: BP 114/85
[2018-09-12] MEDS ORDERED: POTASSIUM CHLORIDE 20MEQ TABLET SR PO SCH (12:00)
[2018-09-12 12:43] VITALS: BP 114/85
[2018-09-12] MEDS: ENOXAPARIN 40MG/0.4ML SYR SUBCUT SCH (14:20)
== END 2018-09-12 15:45 | disposition home or self-care (01) | DRG 133 ==
LOC: ER 08:32 → 7WST 10:55 → EDBEDREQ 10:59 → ENRESERV 12:52
PROVIDERS: ADMIT Internal Medicine; ATTEND Internal Medicine
DX: J96.00 Acute respiratory failure, unspecified whether with hypoxia or hypercapnia (principal); I50.43 Acute on chronic combined systolic (congestive) and diastolic (congestive) heart failure; E11.22 Type 2 diabetes mellitus with diabetic chronic kidney disease; I42.9 Cardiomyopathy, unspecified; F32.3 Major depressive disorder, single episode, severe with psychotic features; E44.1 Mild protein-calorie malnutrition; I08.3 Combined rheumatic disorders of mitral, aortic and tricuspid valves; I13.0 Hypertensive heart and chronic kidney disease with heart failure and stage 1 through stage 4 chronic kidney disease, or unspecified chronic kidney disease; J44.9 Chronic obstructive pulmonary disease, unspecified; F12.90 Cannabis use, unspecified, uncomplicated; F14.90 Cocaine use, unspecified, uncomplicated; F32.9 Major depressive disorder, single episode, unspecified; F41.9 Anxiety disorder, unspecified; F16.90 Hallucinogen use, unspecified, uncomplicated; K21.9 Gastro-esophageal reflux disease without esophagitis; N18.9 Chronic kidney disease, unspecified; Z82.49 Family history of ischemic heart disease and other diseases of the circulatory system; Z86.73 Personal history of transient ischemic attack (TIA), and cerebral infarction without residual deficits; Z68.25 Body mass index [BMI] 25.0-25.9, adult; Z87.891 Personal history of nicotine dependence; Z79.82 Long term (current) use of aspirin; Z79.899 Other long term (current) drug therapy
CPT/HCPCS: 36415; 71045; 80048; 80305; 83880; 84484; 93005; 96372; 96374; 99291; J0360; J1630; J1650; J1940; J7611

== ENCOUNTER 2019-01-01 09:42 | Inpatient (IN) | payer MEDICAID, MEDICARE, OTHER ==
[~2019-01-01] VITALS: Ht 188 cm; Wt 81.6 kg
[2019-01-01] MEDS ORDERED: NITROGLYCERIN OINT 1GM/INCH UDPKT TD ONE (10:00)
[2019-01-01] MEDS ORDERED: FUROSEMIDE 40MG/4ML VIAL IV ONE (10:00)
[2019-01-01 10:07] LABS: EOSINOPHILS % 1.2 % (0.0-5.0); HEMOGLOBIN. 10.4 g/dL (14.0-18.0); LYMPHOCYTES % 7.1 % (20.0-50.0); MEAN CORPUSCULAR HEMOGLOBIN 25.9 pg (28.0-32.0); MEAN CORPUSCULAR VOLUME 79.9 fL (80.0-94.0); MEAN PLATELET VOLUME 8.3 fl (7.4-10.4); MONOCYTES % 13.1 % (2.0-8.0); NEUTROPHILS % 78.6 % (40.0-76.0); PLATELET 335 x1000/uL (130-400); RED CELL DISTRIBUTION WIDTH 18.3 % (11.6-14.6)
[2019-01-01 10:14] LABS: CHLORIDE 106 mEq/L (98-107); INR 1.1; PROTHROMBIN TIME 11.5 sec (9.6-11.0)
[2019-01-01] MEDS ORDERED: FUROSEMIDE 40MG/4ML VIAL IVP SCH ×3 (13:30→18:03)
[2019-01-01] MEDS ORDERED: ONDANSETRON HCL 4MG/2ML INJ IV PRN (13:30)
[2019-01-01] MEDS ORDERED: ACETAMINOPHEN 325MG TABLET PO PRN (13:30)
[2019-01-01] MEDS ORDERED: BUDESONIDE 0.5MG/2ML NEB HHN SCH ×2 (15:15→18:04)
[2019-01-01] MEDS ORDERED: LOSARTAN POTASSIUM 25 MG TABLET PO SCH ×2 (16:45→18:03)
[2019-01-01 16:56] LABS: *BARBITURATES SCREEN URINE NEGATIVE (NEGATIVE); *BENZODIAZEPINES SCREEN URINE NEGATIVE (NEGATIVE); *COCAINE SCREEN URINE NEGATIVE (NEGATIVE); METHADONE URINE SCREEN NEGATIVE (NEGATIVE); OPIATES URINE SCREEN NEGATIVE (NEGATIVE)
[2019-01-01 16:57] LABS: *AMPHETAMINES SCREEN URINE NEGATIVE (NEGATIVE); CANNABINOID URINE SCREEN PRESUMTIVE POSITIVE (NEGATIVE); PHENCYCLIDINE URINE SCREEN NEGATIVE (NEGATIVE)
[2019-01-01] MEDS ORDERED: ENOXAPARIN 40MG/0.4ML SYR SUBCUT SCH (18:06)
[2019-01-01 21:00] VITALS: BP 148/63
[2019-01-01] MEDS ORDERED: CARVEDILOL 6.25 MG TABLET PO SCH (21:00)
[2019-01-01] MEDS ORDERED: GUAIFENESIN 600MG ER TABLET PO SCH (21:00)
[2019-01-01] MEDS: CARVEDILOL 6.25 MG TABLET PO SCH (22:04)
[2019-01-01] MEDS: GUAIFENESIN 600MG ER TABLET PO SCH (22:05)
[2019-01-01 22:06] VITALS: BP 140/63
[2019-01-01] MEDS: ZOLPIDEM TARTRATE 5MG TABLET PO PRN (23:02)
[2019-01-02] VITALS: BP 106/78
[2019-01-02 04:00] VITALS: BP 101/60
[2019-01-02 08:00] VITALS: BP 101/73
[2019-01-02] MEDS: CARVEDILOL 6.25 MG TABLET PO SCH ×2 (08:52→21:00)
[2019-01-02] MEDS: LOSARTAN POTASSIUM 25 MG TABLET PO SCH (08:53)
[2019-01-02] MEDS: ENOXAPARIN 40MG/0.4ML SYR SUBCUT SCH ×2 (09:00→09:04)
[2019-01-02] MEDS: FUROSEMIDE 40MG/4ML VIAL IVP SCH ×2 (09:00→17:16)
[2019-01-02] MEDS: GUAIFENESIN 600MG ER TABLET PO SCH ×2 (09:05→21:00)
[2019-01-02 12:00] VITALS: BP 100/65
[2019-01-02] MEDS ORDERED: LACTULOSE 20G/30ML UDC PO NR (14:00)
[2019-01-02] MEDS: TAMSULOSIN HCL 0.4MG SR CAPSULE PO SCH (15:05)
[2019-01-02 15:57] LABS: BASOPHILS % 1.1 % (0.0-2.0); EOSINOPHILS % 1.3 % (0.0-5.0); HEMATOCRIT. 31.2 % (42.0-52.0); HEMOGLOBIN. 10.3 g/dL (14.0-18.0); MEAN CORPUSCULAR HEMOGLOBIN 26.3 pg (28.0-32.0); MEAN CORPUSCULAR VOLUME 79.6 fL (80.0-94.0); MEAN PLATELET VOLUME 8.8 fl (7.4-10.4); MONOCYTES % 9.7 % (2.0-8.0); NEUTROPHILS % 73.9 % (40.0-76.0); PLATELET 332 x1000/uL (130-400); RED BLOOD CELL COUNT 3.92 mill/uL (4.7-6.1); RED CELL DISTRIBUTION WIDTH 17.8 % (11.6-14.6)
[2019-01-02 16:00] VITALS: BP 97/70
[2019-01-02 17:18] LABS: CREATINE KINASE MB FRACTION 2.4 ng/mL (0.5-3.6)
[2019-01-02] MEDS ORDERED: LACTULOSE 20G/30ML UDC PO PRN (19:00)
[2019-01-02 20:00] VITALS: BP 100/67
[2019-01-02] MEDS: ZOLPIDEM TARTRATE 5MG TABLET PO PRN (22:37)
[2019-01-03] VITALS (7 sets, daily range): BP systolic 88–112; BP diastolic 56–77
[2019-01-03 07:00] LABS: BASOPHILS % 0.9 % (0.0-2.0); HEMATOCRIT. 31.2 % (42.0-52.0); HEMOGLOBIN. 10.3 g/dL (14.0-18.0); LYMPHOCYTES % 15.8 % (20.0-50.0); MEAN CORPUSCULAR HEMOGLOBIN 25.7 pg (28.0-32.0); MEAN CORPUSCULAR VOLUME 77.9 fL (80.0-94.0); MEAN PLATELET VOLUME 8.9 fl (7.4-10.4); MONOCYTES % 11.2 % (2.0-8.0); NEUTROPHILS % 70.1 % (40.0-76.0); PLATELET 341 x1000/uL (130-400); RED BLOOD CELL COUNT 4.01 mill/uL (4.7-6.1); RED CELL DISTRIBUTION WIDTH 18.3 % (11.6-14.6)
[2019-01-03] MEDS: CARVEDILOL 6.25 MG TABLET PO SCH ×2 (09:00→20:40)
[2019-01-03] MEDS: LOSARTAN POTASSIUM 25 MG TABLET PO SCH (09:00)
[2019-01-03] MEDS: GUAIFENESIN 600MG ER TABLET PO SCH ×2 (09:00→20:39)
[2019-01-03] MEDS: IPRATROPIUM/ALBUTEROL 0.5-3(2.5)MG/3ML NEB HHN PRN (09:03)
[2019-01-03] MEDS: BUDESONIDE 0.5MG/2ML NEB HHN SCH ×2 (09:03→21:19)
[2019-01-03] MEDS: FUROSEMIDE 40MG/4ML VIAL IVP SCH ×2 (09:24→17:14)
[2019-01-03] MEDS: TAMSULOSIN HCL 0.4MG SR CAPSULE PO SCH (09:25)
[2019-01-03] MEDS: ENOXAPARIN 40MG/0.4ML SYR SUBCUT SCH (09:26)
[2019-01-03 13:43] LABS: PHOSPHORUS 4.7 mg/dL (2.5-4.9)
[2019-01-03 17:34] LABS: CLARITY URINE CLEAR (CLEAR); COLOR URINE YELLOW (YELLOW); KETONES URINE NEGATIVE (NEGATIVE); LEUKOCYTE ESTERASE URINE NEGATIVE (NEGATIVE); NITRITE URINE NEGATIVE (NEGATIVE); OCCULT BLOOD URINE TRACE (NEGATIVE); PROTEIN URINE NEGATIVE (NEGATIVE); UROBILINOGEN URINE 0.2 E.U./dL (0.2-1.0)
[2019-01-03] MEDS ORDERED: OXYMETAZOLINE HCL NASAL SPRAY 15ML BOTHNSTRLS PRN (18:00)
[2019-01-03] MEDS ORDERED: SODIUM CHLORIDE 45ML SPRAY NS PRN (18:00)
[2019-01-03] MEDS: ZOLPIDEM TARTRATE 5MG TABLET PO PRN (23:10)
[2019-01-04 04:00] VITALS: BP 106/70
[2019-01-04 06:14] LABS: BASOPHILS % 0.6 % (0.0-2.0); EOSINOPHILS % 1.2 % (0.0-5.0); HEMATOCRIT. 29.1 % (42.0-52.0); HEMOGLOBIN. 9.8 g/dL (14.0-18.0); LYMPHOCYTES % 15.2 % (20.0-50.0); MEAN CORPUSCULAR HEMOGLOBIN 26.4 pg (28.0-32.0); MEAN CORPUSCULAR VOLUME 78.4 fL (80.0-94.0); MEAN PLATELET VOLUME 8.9 fl (7.4-10.4); MONOCYTES % 13.1 % (2.0-8.0); NEUTROPHILS % 69.9 % (40.0-76.0); PLATELET 318 x1000/uL (130-400); RED BLOOD CELL COUNT 3.71 mill/uL (4.7-6.1); RED CELL DISTRIBUTION WIDTH 17.9 % (11.6-14.6)
[2019-01-04] MEDS: BUDESONIDE 0.5MG/2ML NEB HHN SCH (07:41)
[2019-01-04] MEDS: IPRATROPIUM/ALBUTEROL 0.5-3(2.5)MG/3ML NEB HHN PRN (07:42)
[2019-01-04 08:00] VITALS: BP 101/70
[2019-01-04] MEDS: CARVEDILOL 6.25 MG TABLET PO SCH ×2 (09:00→20:38)
[2019-01-04] MEDS: LOSARTAN POTASSIUM 25 MG TABLET PO SCH (09:00)
[2019-01-04] MEDS: GUAIFENESIN 600MG ER TABLET PO SCH ×2 (10:42→20:38)
[2019-01-04] MEDS: TAMSULOSIN HCL 0.4MG SR CAPSULE PO SCH (10:42)
[2019-01-04] MEDS: FUROSEMIDE 40MG/4ML VIAL IVP SCH ×2 (10:43→17:57)
[2019-01-04] MEDS: ENOXAPARIN 40MG/0.4ML SYR SUBCUT SCH (10:44)
[2019-01-04 16:00] VITALS: BP_SYST 101; BP_SYST 103; BP_DIAS 57
[2019-01-04 20:00] VITALS: BP 94/59
[2019-01-04 21:43] VITALS: BP 86/55
== END 2019-01-05 00:30 | disposition short-term general hospital (02) | DRG 470 ==
LOC: ER 09:51 → 8WST 12:07 → EDBEDREQ 12:12 → ENRESERV 20:04 → ER 21:04
PROVIDERS: ADMIT Internal Medicine; ATTEND Internal Medicine
DX: I12.9 Hypertensive chronic kidney disease with stage 1 through stage 4 chronic kidney disease, or unspecified chronic kidney disease (principal); J96.00 Acute respiratory failure, unspecified whether with hypoxia or hypercapnia; N17.0 Acute kidney failure with tubular necrosis; I50.23 Acute on chronic systolic (congestive) heart failure; E11.22 Type 2 diabetes mellitus with diabetic chronic kidney disease; I27.20 Pulmonary hypertension, unspecified; I95.9 Hypotension, unspecified; I08.3 Combined rheumatic disorders of mitral, aortic and tricuspid valves; E44.1 Mild protein-calorie malnutrition; I42.9 Cardiomyopathy, unspecified; N18.2 Chronic kidney disease, stage 2 (mild); I25.10 Atherosclerotic heart disease of native coronary artery without angina pectoris; N13.30 Unspecified hydronephrosis; R04.2 Hemoptysis; D64.9 Anemia, unspecified; K59.00 Constipation, unspecified; J44.9 Chronic obstructive pulmonary disease, unspecified; F17.200 Nicotine dependence, unspecified, uncomplicated; J98.11 Atelectasis; Z99.81 Dependence on supplemental oxygen; Z86.73 Personal history of transient ischemic attack (TIA), and cerebral infarction without residual deficits; Z79.899 Other long term (current) drug therapy; I25.2 Old myocardial infarction; Z68.23 Body mass index [BMI] 23.0-23.9, adult
CPT/HCPCS: 36415; 71045; 76770; 80048; 80305; 82550; 82553; 82962; 83036; 83735; 83880; 84100; 84145; 84153; 84484; 93005; 93306; 93970; 94640; 96372; 96374; 96375; 99285; J1650; J1940; J2405; J7620; J7626; A4315; G0103

== ENCOUNTER 2019-02-05 20:49 | Inpatient (IN) | payer MEDICARE ==
[~2019-02-05] VITALS: Ht 188 cm; Wt 80.3 kg
[2019-02-05] MEDS ORDERED: ALBUTEROL (0.083%) 2.5MG/3ML NEB HHN STA (21:44)
[2019-02-05] MEDS ORDERED: METHYLPREDNISOLONE SOD SUCC 125 MG/2 ML VIAL IV STA (21:44)
[2019-02-05] MEDS ORDERED: IPRATROPIUM BROMIDE (0.02%) 0.5MG/2.5ML NEB HHN STA (21:44)
[2019-02-05] MEDS ORDERED: ASPIRIN 81MG TABLET PO ONE (21:45)
[2019-02-05 22:46] LABS: BASOPHILS % 0.6 % (0.0-2.0); EOSINOPHILS % 1.5 % (0.0-5.0); HEMOGLOBIN. 10.2 g/dL (14.0-18.0); LYMPHOCYTES % 18.4 % (20.0-50.0); MEAN CORPUSCULAR HEMOGLOBIN 25.4 pg (28.0-32.0); MEAN CORPUSCULAR VOLUME 77.1 fL (80.0-94.0); MEAN PLATELET VOLUME 8.7 fl (7.4-10.4); MONOCYTES % 6.3 % (2.0-8.0); NEUTROPHILS % 73.2 % (40.0-76.0); PLATELET 270 x1000/uL (130-400); RED BLOOD CELL COUNT 4.02 mill/uL (4.7-6.1); RED CELL DISTRIBUTION WIDTH 20.1 % (11.6-14.6)
[2019-02-05 22:49] LABS: CHLORIDE 105 mEq/L (98-107)
[2019-02-05 22:54] LABS: D-DIMER 0.72 mg/L FEU (<0.50); INR 1.1; PARTIAL THROMBOPLASTIN TIME 33.7 sec (23.4-31.0); PROTHROMBIN TIME 11.7 sec (9.6-11.0)
[2019-02-06] MEDS ORDERED: NITROGLYCERIN OINT 1GM/INCH UDPKT TD ONE
[2019-02-06] MEDS ORDERED: FUROSEMIDE 40MG/4ML VIAL IV ONE
[2019-02-06] MEDS ORDERED: ENOXAPARIN 80MG/0.8ML SYR SUBCUT ONE (02:00)
[2019-02-06] MEDS ORDERED: IOHEXOL-350 100 ML BOTTLE ONE ×2 (02:51→02:52)
[2019-02-06] MEDS ORDERED: CLONIDINE 0.1MG TABLET PO PRN (07:45)
[2019-02-06] MEDS ORDERED: MAGNESIUM/ALUMINUM HYDROXIDE/SIMETHICONE 30ML UDC PO PRN (07:45)
[2019-02-06] MEDS ORDERED: DOCUSATE SODIUM 100MG CAPSULE PO PRN (07:45)
[2019-02-06] MEDS ORDERED: HYDROCODONE/ACETAMINOPHEN 5/325MG TABLET PO PRN (07:45)
[2019-02-06] MEDS ORDERED: ACETAMINOPHEN 325MG TABLET PO PRN (07:45)
[2019-02-06] MEDS ORDERED: DIPHENHYDRAMINE 50MG/ML VIAL IV PRN (07:45)
[2019-02-06] MEDS ORDERED: ONDANSETRON HCL 4MG/2ML INJ IV PRN (07:45)
[2019-02-06] MEDS ORDERED: GUAIFENESIN 200MG/10ML SUGAR FREE UDC PO PRN (07:45)
[2019-02-06 08:39] VITALS: BP 110/60
[2019-02-06] MEDS ORDERED: IPRATROPIUM/ALBUTEROL 0.5-3(2.5)MG/3ML NEB INH PRN (09:00)
[2019-02-06] MEDS ORDERED: ALPR1TAB2 PO (09:04)
[2019-02-06] MEDS: FUROSEMIDE 40MG/4ML VIAL IV SCH ×2 (10:01→16:43)
[2019-02-06] MEDS: ENOXAPARIN 40MG/0.4ML SYR SUBCUT SCH (10:01)
[2019-02-06 10:44] LABS: PHOSPHORUS 4.2 mg/dL (2.5-4.9)
[2019-02-06 12:00] VITALS: BP 98/76
[2019-02-06] MEDS: IPRATROPIUM/ALBUTEROL 0.5-3(2.5)MG/3ML NEB HHN SCH ×3 (12:35→21:09)
[2019-02-06] MEDS: BUDESONIDE 0.5MG/2ML NEB HHN SCH ×2 (12:35→21:10)
[2019-02-06 14:18] LABS: CREATINE KINASE MB FRACTION 1.5 ng/mL (0.5-3.6)
[2019-02-06 16:00] VITALS: BP 97/63
[2019-02-06 19:04] LABS: TOTAL IRON BINDING CAPACITY 277 ug/dL (250-450)
[2019-02-06 20:00] VITALS: BP 100/64
[2019-02-06] MEDS: GUAIFENESIN 600MG ER TABLET PO SCH (21:32)
[2019-02-07] VITALS: BP 98/61
[2019-02-07] MEDS: IPRATROPIUM/ALBUTEROL 0.5-3(2.5)MG/3ML NEB HHN SCH ×4 (00:15→16:47)
[2019-02-07] MEDS ORDERED: ALPRAZOLAM 0.5 MG TABLET PO PRN (00:30)
[2019-02-07] MEDS ORDERED: ALPRAZOLAM 0.25 MG TABLET PO PRN (00:30)
[2019-02-07 00:47] LABS: CREATINE KINASE MB FRACTION 1.6 ng/mL (0.5-3.6)
[2019-02-07 04:00] VITALS: BP 87/57
[2019-02-07 06:26] LABS: CHLORIDE 99 mEq/L (98-107)
[2019-02-07 06:35] LABS: LDL CHOLESTEROL 115 mg/dL (5-100)
[2019-02-07 06:37] LABS: HDL CHOLESTEROL 59 mg/dL (40-59)
[2019-02-07 07:05] LABS: BASOPHILS % 0.3 % (0.0-2.0); EOSINOPHILS % 0.3 % (0.0-5.0); HEMATOCRIT. 27.7 % (42.0-52.0); HEMOGLOBIN. 9.3 g/dL (14.0-18.0); LYMPHOCYTES % 13.5 % (20.0-50.0); MEAN CORPUSCULAR HEMOGLOBIN 25.7 pg (28.0-32.0); MEAN CORPUSCULAR VOLUME 76.4 fL (80.0-94.0); MEAN PLATELET VOLUME 9.2 fl (7.4-10.4); MONOCYTES % 8.5 % (2.0-8.0); NEUTROPHILS % 77.4 % (40.0-76.0); PLATELET 250 x1000/uL (130-400); RED BLOOD CELL COUNT 3.62 mill/uL (4.7-6.1); RED CELL DISTRIBUTION WIDTH 20.2 % (11.6-14.6)
[2019-02-07 08:00] VITALS: BP 104/78
[2019-02-07] MEDS: ENOXAPARIN 40MG/0.4ML SYR SUBCUT SCH (09:00)
[2019-02-07] MEDS: BUDESONIDE 0.5MG/2ML NEB HHN SCH (09:43)
[2019-02-07] MEDS: GUAIFENESIN 600MG ER TABLET PO SCH ×2 (10:42→10:46)
[2019-02-07] MEDS: FUROSEMIDE 40MG/4ML VIAL IV SCH ×2 (10:42→17:00)
[2019-02-07] MEDS ORDERED: POTASSIUM CHLORIDE 20MEQ TABLET SR PO NR (10:45)
[2019-02-07 12:00] VITALS: BP 129/92
[2019-02-07 16:00] VITALS: BP 130/88
[2019-02-07 18:19] VITALS: BP 130/88
== END 2019-02-07 19:05 | disposition home or self-care (01) | DRG 133 ==
LOC: ER 20:49 → CMPBEDREQ 23:23 → 8WST 23:51 → ENRESERV 02-06 06:41
PROVIDERS: ADMIT Internal Medicine; ATTEND Internal Medicine
DX: J96.20 Acute and chronic respiratory failure, unspecified whether with hypoxia or hypercapnia (principal); I50.23 Acute on chronic systolic (congestive) heart failure; J84.9 Interstitial pulmonary disease, unspecified; N17.9 Acute kidney failure, unspecified; I42.9 Cardiomyopathy, unspecified; I11.0 Hypertensive heart disease with heart failure; G45.9 Transient cerebral ischemic attack, unspecified; D50.9 Iron deficiency anemia, unspecified; E11.9 Type 2 diabetes mellitus without complications; J44.1 Chronic obstructive pulmonary disease with (acute) exacerbation; F17.200 Nicotine dependence, unspecified, uncomplicated; I08.0 Rheumatic disorders of both mitral and aortic valves; I25.10 Atherosclerotic heart disease of native coronary artery without angina pectoris; N40.1 Benign prostatic hyperplasia with lower urinary tract symptoms; R33.8 Other retention of urine; Z86.73 Personal history of transient ischemic attack (TIA), and cerebral infarction without residual deficits; Z99.81 Dependence on supplemental oxygen; Z79.899 Other long term (current) drug therapy
CPT/HCPCS: 36415; 71045; 71275; 80061; 82550; 82553; 82728; 83540; 83550; 83735; 83880; 84100; 84443; 84484; 85379; 87077; 87186; 93005; 93306; 93970; 94640; 94644; 96374; 97162; 97166; 99291; J1650; J1940; J2930; J7611; J7620; J7626; Q9967; A4315